=== PATIENT | male | born 1960 | race African-American/Black ===

== ENCOUNTER 2016-08-31 06:29 | Day surgery (SDC) | payer BC ==
[2016-08-23 12:29] LABS: BASOPHILS 0.5 %; BASOPHILS ABSOLUTE 0.05 10/3/uL (0.0-0.16); EOSINOPHILS 1.7 %; EOSINOPHILS ABSOLUTE 0.17 10/3/uL (0.0-0.53); HEMATOCRIT 40.1 % (40.0-51.0); HEMOGLOBIN 13.3 g/dL (13.6-17.8); IMMATURE GRANULOCYTES 0.3 %; IMMATURE GRANULOCYTES ABSOLUTE 0.03 10/3/uL (0.0-0.11); LYMPHOCYTES 28.3 %; LYMPHOCYTES ABSOLUTE 2.79 10/3/uL (0.67-4.30); MEAN CORPUS HGB CONC 33.2 g/dL (32.0-36.0); MEAN CORPUSCULAR HEMOGLOB 23.1 pg (26.0-34.0); MEAN CORPUSCULAR VOLUME 69.5 fL (80-100); MEAN PLATELET VOLUME 10.4 fL (9.2-13.0); MONOCYTES 7.6 %; MONOCYTES ABSOLUTE 0.75 10/3/uL (0.21-1.20); NEUTROPHILS 61.6 %; NEUTROPHILS ABSOLUTE 6.07 10/3/uL (2.02-8.40); PLATELET COUNT 236 10/3/uL (150-400); RBC DISTRIBUTION WIDTH 15.7 % (12.0-16.0); RED CELL COUNT 5.77 10/6/uL (4.7-6.1); WHITE BLOOD CELLS 9.9 10/3/uL (4.5-10.5)
[2016-08-23 12:30] LABS: MANUAL DIFF NO %
[2016-08-23 12:34] LABS: INTERNATIONAL NORMAL RATI 1.2 UNITS (-); PROTIME (NOT ORD) 14.8 SEC (12.0-14.5)
[2016-08-23 12:35] LABS: PARTIAL THROMBO TIME 32.3 SEC (22.5-37.2)
[2016-08-23 12:41] LABS: BUN (BLOOD UREA NITROGEN) 8 MG/DL (6-23); CALCIUM, SERUM 9.3 MG/DL (8.5-10.4); CHLORIDE, SERUM 108 MMOL/L (96-112); CO2 (CARBON DIOXIDE) 29 MMOL/L (24-34); CREATININE 1.07 MG/DL (0.70-1.30); GFR AFRICAN AMERICAN 90 ML/MIN (>=60); GFR NON AFRICAN AMERICAN 78 ML/MIN (>=60); GLUCOSE, SERUM 83 MG/DL (60-99); SODIUM, SERUM 145 MMOL/L (135-148)
[2016-08-23 12:42] LABS: POTASSIUM, SERUM 4.4 MMOL/L (3.5-5.3)
[2016-08-23 12:56] LABS: PLATELET ESTIMATE ADQ (ADEQUATE)
--- NOTE | ~2016-08-31 | OP ---
Record Of Operation [facility] [address] [place]. [address] NAME: MONIQUE MCGRATH : 62 STATUS : [facility]#: [id number] AGE: 56 ADM/REG DATE : 08/31/16 MR#: [id number] REPORT SERV DATE: 09/01/16 DICTATED BY: ZAIDA IVY DATE: 09/01/16 REPORT STATUS : Draft TRANSCRIBED BY: MIKA DATE: 09/01/16 DATE OF PROCEDURE: 08/31/2016 PREOPERATIVE DIAGNOSIS: Left glottic lesion. POSTOPERATIVE DIAGNOSIS: Left glottic and supraglottic lesions. OPERATIVES PROCEDURE: Microscopic direct laryngoscopy, rigid bronchoscopy, and cervical esophagoscopy. INDICATIONS AND SIGNIFICANT HISTORY: The patient is a 56-year-old male with significant history of increasing dysphonia and left sore throat and ear pain. After inspection in the office revealed a lesion along the left glottic larynx. The patient was felt to benefit from direct laryngoscopy and biopsy of these lesions. OPERATIVE PROCEDURE AND FINDINGS: After informed consent was obtained, the patient was brought to the operating room, placed on the operating room table in supine position. At which point, general endotracheal anesthesia was induced by the Anesthesia Service, and the bed was turned to 90 degrees toward the variety lathe operator. At this point, a Dedo laryngoscope was inserted into the oral cavity, and used to inspect lateral pharyngeal lama, base of the tongue, epiglottis, piriform sinuses, vallecula, all of which were clear. Yovani anterior commissure scope was then inserted into the oral cavity, and used to inspect the glottic larynx. Upon inspection of the glottic larynx, there was noted to be normal right true vocal fold. There was white plaque over the left superior surface of the left true vocal fold that was consistent with leukoplakia, but this extended into the ventricle and up into the false vocal fold in the form of a what appeared to be mass. Rigid bronchoscopy was then performed and normal inferior surface of the vocal fold and the normal subglottic trachea to the raysa were noted. The cervical esophagoscopy was then performed and advanced 26 cm, no additional lesions were noted and normal mucosa of the esophagus. Attention was returned to the glottic and supraglottic larynx where two biopsies were taken of the left side. The left superior surface of the true vocal fold was biopsied in this white leukoplakia type area, and was labeled left true vocal fold biopsy. 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 The patient was then turned back toward Anesthesia, aroused from anesthesia, and taken to the Postanesthesia Care Unit in satisfactory condition. COMPLICATIONS: None. ESTIMATED BLOOD LOSS: Less than 5 mL. IV FLUIDS: Per Anesthesia. JOHNATHON/MIKA Record Of [address] [place]. [address] NAME: MONIQUE MCGRATH : 62 STATUS : [facility]#: [id number] AGE: 56 ADM/REG DATE : 08/31/16 MR#: [id number] REPORT SERV DATE: 09/01/16 DICTATED BY: ZAIDA IVY DATE: 09/01/16 REPORT STATUS : Draft TRANSCRIBED BY: MIKA DATE: 09/01/16 Zaida Ivy M.D. / [id number] CC: Shasha Huddleston M.D.
[~2016-08-31 06:29] MED LIST: COZAAR100 MG PO; HYZAAR 50/12.51 TAB PO; LOTREL1 CA1 PO; NORV5 PO; PREV30 PO; PRILO PO
== END 2016-08-31 14:28 | disposition home or self-care (01) ==
LOC: SDC 06:29
PROVIDERS: Otolaryngology
PROC: 0DB18ZX Excision of Upper Esophagus, Via Natural or Artificial Opening Endoscopic, Diagnostic (ICD-10-PCS; 2016-08-31)
PROC: 0CJS8ZZ Inspection of Larynx, Via Natural or Artificial Opening Endoscopic (ICD-10-PCS; principal; 2016-08-31 07:45)
PROC: 0BJ08ZZ Inspection of Tracheobronchial Tree, Via Natural or Artificial Opening Endoscopic (ICD-10-PCS; 2016-08-31 07:45)
DX: D02.0 Carcinoma in situ of larynx (principal); I10 Essential (primary) hypertension; K21.9 Gastro-esophageal reflux disease without esophagitis; Z85.46 Personal history of malignant neoplasm of prostate; Z79.899 Other long term (current) drug therapy; Z88.5 Allergy status to narcotic agent; F17.200 Nicotine dependence, unspecified, uncomplicated; Z86.010 Personal history of colon polyps; Z98.890 Other specified postprocedural states
CPT/HCPCS: 80048; 85025; 85610; 85730; 88305; J0330; J2250; J2405; J3010